=== PATIENT | female | born 1950 ===

== ENCOUNTER → 2022-10-31 | Outpatient (CLI) | payer MEDICARE, BC ==
[2022-10-31 18:57] LABS: BASOPHILS ABSOLUTE AUTO 0.06 K/mm3 (0.00-0.23); BASOPHILS PERCENT AUTO 1 % (0-2); EOSINOPHILS ABSOLUTE AUTO 0.26 K/mm3 (0.00-0.68); EOSINOPHILS PERCENT AUTO 6 % (0-6); Hematocrit 41.7 % (33.0-51.0); Hemoglobin 13.1 g/dL (11.5-16.0); IMMATURE GRAN ABSOLUTE AUTO 0.01 K/mm3 (0.00-0.10); IMMATURE GRAN PERCENT AUTO 0 % (0-1); LYMPHOCYTES ABSOLUTE AUTO 1.45 K/mm3 (0.84-5.20); LYMPHOCYTES PERCENT AUTO 30 % (21-46); MONOCYTES ABSOLUTE AUTO 0.33 K/mm3 (0.16-1.47); MONOCYTES PERCENT AUTO 7 % (4-13); Mean Corpuscular HGB 27.5 pg (26.0-34.0); Mean Corpuscular HGB Conc 31.4 g/dL (31.5-36.5); Mean Corpuscular Volume 88 fL (80-100); Mean Platelet Volume 12.8 fL (9.1-12.4); NEUTROPHILS ABSOLUTE AUTO 2.66 K/mm3 (1.96-9.15); NEUTROPHILS PERCENT AUTO 56 % (41-73); Platelet Count 204 K/mm3 (150-400); RDW Standard Deviation 45.4 fL (35.1-46.3); Red Blood Cell Count 4.76 M/mm3 (3.80-5.20); White Blood Cell Count 4.77 K/mm3 (4.00-11.30)
[2022-10-31 19:44] LABS: Albumin, Blood 3.4 g/dL (3.4-5.0); Bilirubin, Total 0.3 mg/dL (0.1-1.0); Bun/Creatinine Ratio 17.1 (12.0-20.0); Calcium, Blood 8.6 mg/dL (8.5-10.1); Creatinine, Blood 0.82 mg/dL (0.40-1.00); Globulin, Blood 3.4 g/dL (2.2-4.0); Potassium, Blood 3.9 mmol/L (3.5-5.5); Total Protein, Blood 6.8 g/dL (6.4-8.2)
== END | disposition home or self-care (01) ==
LOC: LAB 15:27 → LAB SHORT 15:27
PROVIDERS: Family Medicine
DX: I10 Essential (primary) hypertension (principal); Z79.899 Other long term (current) drug therapy
CPT/HCPCS: 80053; 85025

== ENCOUNTER 2023-07-04 06:33 | Day surgery (SDC) | payer MEDICARE, BC ==
[~2023-07-04] VITALS: Ht 160 cm; Wt 84.7 kg
[~2023-07-04 06:33] MED LIST: ATOR20 PO; Balanced Salt Epinephrine Irrigation Solution 500 mL IR SCH; DOCU100 PO; FLONASE ALLERG9.9 M2; Lidocaine HCl/Pf 1% 5 ML VIAL XX SCH; MELATONIN2.5 M1; Moxifloxacin HCL 0.5 MG/0.1 ML 0.4MLSYR RIGHTEYE SCH; NS 500 ML IV ONE; PHENYLEPHRINE\\TROPICAMIDE\\TETRACAINE OPHTHALMIC DILATING SOLN RIGHTEYE PRN; Povidone-Iodine 450 DROP/30 ML Solution ONE; Povidone-Iodine 450 DROP/30 ML Solution RIGHTEYE SCH; Prinivil10 MG PO
[2023-07-04] MEDS ORDERED: Lidocaine HCl/Pf 1% 5 ML VIAL ONE (06:46)
[2023-07-04] MEDS ORDERED: ASPI81CH PO (06:53)
[2023-07-04] MEDS ORDERED: ATELVIA PO (06:54)
[2023-07-04] MEDS ORDERED: NS 500 ML IV ONE (06:58)
--- NOTE | 2023-07-04 06:59 | NUR ---
07/04/23 0659 Christin Piña CALL LIGHT WITHIN REACH. PATRICIO IN RIGHT EYE AT 0655 AND RONALD IN AT 0657
[2023-07-04] MEDS ORDERED: Midazolam HCl 1MG / ML 2ML Vial ONE (07:51)
[2023-07-04] MEDS ORDERED: FentaNYL Citrate 50 MCG/ML 2 ML Injection ONE (07:51)
[2023-07-04] MEDS ORDERED: Tetracaine HCl 0.5% Opth Soln 15 ml RIGHTEYE ONE (08:11)
[2023-07-04] MEDS ORDERED: Ondansetron HCl 2 MG / ML 2ML Vial ONE (08:15)
[2023-07-04 08:30] VITALS: BP 143/78
== END 2023-07-04 08:43 | disposition home or self-care (01) ==
LOC: ORSCSDS 06:33
PROVIDERS: Student in an Organized Health Care Education/Training Program
PROC: 08RJ3JZ Replacement of Right Lens with Synthetic Substitute, Percutaneous Approach (ICD-10-PCS; principal; 2023-07-04 08:00)
DX: H25.13 Age-related nuclear cataract, bilateral (principal); I10 Essential (primary) hypertension; G47.33 Obstructive sleep apnea (adult) (pediatric); E66.9 Obesity, unspecified; Z68.33 Body mass index [BMI] 33.0-33.9, adult; Z79.899 Other long term (current) drug therapy; Z79.82 Long term (current) use of aspirin
CPT/HCPCS: J2001; J2250; J2405; J3010; J7040; V2632

== ENCOUNTER 2023-07-18 06:47 | Day surgery (SDC) | payer MEDICARE, BC ==
[~2023-07-18] VITALS: Ht 160 cm; Wt 85.5 kg
[~2023-07-18 06:47] MED LIST changes: +ASPI81CH PO; +ATELVIA PO; +Lactated Ringer's 1,000 ML IV ONE; +Lidocaine HCl/Pf 1% 5 ML VIAL ONE; -MELATONIN2.5 M1; +MELATONIN2.5 M1 PO; +Moxifloxacin HCL 0.5 MG/0.1 ML 0.4MLSYR LEFTEYE SCH; -Moxifloxacin HCL 0.5 MG/0.1 ML 0.4MLSYR RIGHTEYE SCH; +PHENYLEPHRINE\\TROPICAMIDE\\TETRACAINE OPHTHALMIC DILATING SOLN LEFTEYE PRN; -PHENYLEPHRINE\\TROPICAMIDE\\TETRACAINE OPHTHALMIC DILATING SOLN RIGHTEYE PRN; +Povidone-Iodine 450 DROP/30 ML Solution LEFTEYE SCH; -Povidone-Iodine 450 DROP/30 ML Solution RIGHTEYE SCH; +Vitamin B Comple1 EA PO
[2023-07-18] MEDS ORDERED: FentaNYL Citrate 50 MCG/ML 2 ML Injection ONE (06:57)
[2023-07-18] MEDS ORDERED: Midazolam HCl 1MG / ML 2ML Vial ONE (06:57)
[2023-07-18] MEDS ORDERED: VITAMIN D31250 MC2 (07:02)
[2023-07-18] MEDS ORDERED: Aspir 8181 MG (07:03)
[2023-07-18] MEDS ORDERED: RISE35 (07:06)
[2023-07-18] MEDS ORDERED: Tetracaine HCl 0.5% Opth Soln 15 ml LEFTEYE ONE (07:56)
[2023-07-18 08:28] VITALS: BP 133/73
--- NOTE | 2023-07-18 09:10 | NUR ---
07/18/23 0910 Delilah Velazquez CORRECTION TO IV FLUIDS: FLUIDS USED WERE NORMAL SALINE 500 ML NOT LR 0832: PATIENT VOMITED 250 ML YELLOW EMESIS. PATIENT REFUSED ANTINAUSEA MEDICATIONS, WOULD LIKE TO SIP ON STARRY SODA AND EAT SOME SALTINES AND "TAKE IT SLOW" 0850: PATIENT REPORTS FEELING BETTER, NO LONGER NAUSEOUS. PATIENT SUPPLIED WITH EMESIS BAGS FOR RIDE HOME AND PAD FOR CAR SHE URINATED WHILE VOMITING. PATIENT EXPRESSED READINESS TO GO HOME AND STATED SHE WOULD "TAKE IT EASY AND REST AT HOME AND WOULD FEEL BETTER THEN". PATIENT CONTINUES TO DENY ANY EYE PAIN.
== END 2023-07-18 09:00 | disposition home or self-care (01) ==
LOC: ORSCSDS 06:47
PROVIDERS: Student in an Organized Health Care Education/Training Program
PROC: 08RK3JZ Replacement of Left Lens with Synthetic Substitute, Percutaneous Approach (ICD-10-PCS; principal; 2023-07-18 08:00)
DX: H25.12 Age-related nuclear cataract, left eye (principal); Z96.1 Presence of intraocular lens; I10 Essential (primary) hypertension; K21.9 Gastro-esophageal reflux disease without esophagitis; Z79.899 Other long term (current) drug therapy
CPT/HCPCS: J2001; J2250; J3010; J7040; V2632

== ENCOUNTER → 2024-02-23 | Outpatient (CLI) | payer MEDICARE, BC ==
[~2024-02-23] MED LIST changes: +Aspir 8181 MG; -Balanced Salt Epinephrine Irrigation Solution 500 mL IR SCH; -Lactated Ringer's 1,000 ML IV ONE; -Lidocaine HCl/Pf 1% 5 ML VIAL ONE; -Lidocaine HCl/Pf 1% 5 ML VIAL XX SCH; -Moxifloxacin HCL 0.5 MG/0.1 ML 0.4MLSYR LEFTEYE SCH; -NS 500 ML IV ONE; -PHENYLEPHRINE\\TROPICAMIDE\\TETRACAINE OPHTHALMIC DILATING SOLN LEFTEYE PRN; -Povidone-Iodine 450 DROP/30 ML Solution LEFTEYE SCH; -Povidone-Iodine 450 DROP/30 ML Solution ONE; +RISE35; +VITAMIN D31250 MC2
== END | disposition home or self-care (01) ==
LOC: LAB SHORT 17:12 → LAB 17:12
DX: R79.9 Abnormal finding of blood chemistry, unspecified (principal); Z79.899 Other long term (current) drug therapy
CPT/HCPCS: 82728